=== PATIENT | female | born 1945 | race Caucasian/White ===

== ENCOUNTER → 2016-10-16 | Day surgery (SDC) | payer BC ==
[~2016-10-16] VITALS: Ht 160 cm; Wt 51.5 kg
[~2016-10-16] MED LIST: ACETAMINOPHEN 1000 MG/100 ML VIAL IV ONE; ACIP20TA6 PO; BUPIVACAINE HCL PF 0.5% 30 ML VIAL ONE; CLINDAMYCIN PHOS 900 MG/6 ML VIAL ONE; DEXT 5%-NACL 0.45% 1000 ML INJ 1,000 ML IV SCH; GABA300C5 PO; LACTATED RINGER'S 1000 ML INJ 1,000 ML ONE; LIDOCAINE HCL 1% 20 ML VIAL ONE; LISI10TA3 PO; MIDAZOLAM HCL 2 MG/2 ML VIAL ONE; MIRA50TA PO; NORC5TAB PO; ONDANSETRON HCL 4 MG/2 ML VIAL IV PUSH ONE; PHENYLEPH/NS 1000 MCG/10 ML SYR IV ONE; POVIDONE IODINE 10% OINT 1 PACKET TOP ONE; PROPOFOL 200 MG/20 ML AMP IV ONE; SODIUM CHLORIDE 0.9% FLUSH 5 ML FLUSH IVF PRN; SODIUM CHLORIDE 0.9% FLUSH 5 ML FLUSH IVF SCH; SODIUM CHLORIDE 0.9% INJ 100 ML ONE; VENL100T PO; ePHEDrine/NS 25 MG/5 ML SYR IV ONE; fentaNYL CITRATE 250 MCG/5 ML AMP ONE
[2016-10-16 10:25] LABS: HEMATOCRIT 36.3 % (35.0-46.0); MEAN CELL VOLUME 87.5 FL (80.0-100.0); MEAN CORPUSCULAR HEMOGLOBIN 29.1 PG (27.0-34.0); MEAN CORPUSCULAR HGB CONC 33.2 % (32.0-36.0); PLATELET COUNT 306 TH/MM3 (150-450); RED BLOOD COUNT 4.15 MIL/MM3 (4.00-5.30); RED CELL DISTRIBUTION WIDTH 13.2 % (11.6-17.2); REVIEW FLAG FINAL; WHITE BLOOD COUNT 7.4 TH/MM3 (4.0-11.0)
--- NOTE | 2016-10-16 11:49 | HP.UPD ---
H&P Update Date: Oct 16, 2016 Note The Pre-Admit History and Physical Examination regarding the above named patient was reviewed (including, but not limited to, vital signs, medications, allergies, co-morbid conditions), and upon re-examination it is noted that: Indicated with "X" x - the patient's condition has not significantly changed since the last examination. [] - the patient's condition has changed since the last examination. Changes: Nicki Cancino MD Oct 16, 2016 11:48
[2016-10-16 14:41] VITALS: PULSE 93
--- NOTE | 2016-10-16 14:56 | HHI.PR ---
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 Procedure: Repair of radial digital nerve of left index finger with allograft tube. Anesthesia: General Drains: None Tourniquet time (min at mmHg) 37 minutes at 220mm Hg. Patient to: PACU Patient Condition: Good Implant/Devices: SEE IMPLANT LOG (if applicable) Date/Time of Procedure: SEE SURGICAL CARE RECORD Nicki Cancino MD Oct 16, 2016 14:56
[2016-10-16 15:15] VITALS: TEMP 97.8
[2016-10-16 16:00] VITALS: BP 105/57; PULSE 86; RESP 14; O2SAT 98
--- NOTE | 2016-10-17 13:40 | EKG ---
Date Performed: 10/16/2016 Time Performed: 12:53:08 PTAGE: 71 years EKG: Sinus rhythm NONSPECIFIC T-WAVE ABNORMALITY BORDERLINE ECG Compared to prior tracing no significant change PREVIOUS TRACING : 03/18/2007 11.03 DOCTOR: [place] Anaya Interpretating Date/Time 10/17/2016 13:39:26
--- NOTE | 2016-10-19 23:39 | MP ---
cc: LAURA RIVAS M.D. 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 PROCEDURE 1. Repair of radiodigital nerve of left index finger with Allograft tube. 2. Use of operating room microscope. ANESTHESIA General. SURGEON Laura Rivas MD INDICATION A 71-year-old female who lacerated her left hand injuring the nerve. FINDINGS The nerve had healed as a [id number]. At the completion of the procedure, the neuroma was completely excised and the nerve repaired by placing into a nerve guide by Integra. TOURNIQUET TIME 37 minutes. PROCEDURE The patient was seen preoperatively where the site and side were identified and marked. The neuroma itself was identified by the patient and marked. The patient was then taken to the operating room and placed in a supine position. Her identity was checked against the arm band and the consent form, site and side confirmed. Timeout called prior to beginning the procedure. The left upper extremity was prepped with Hibiclens and draped in the usual sterile fashion. The area to be incised was outlined with a marking pen as a zigzag incision over the area of the marked neuroma. The arm was then exsanguinated and the tourniquet inflated to 220 mmHg. A #15 blade was used to make the incision down through skin down to the subcutaneous tissue. Flaps were elevated and raised and the nerve with the [id number] was immediately identified. The operating room microscope was swung into place and the distal end was placed into a tube by first placing an Ethilon stitch into the Integra 2 mm tube and then doing a horizontal mattress suture on the distal end of the nerve and then placing the second half of the stitch back into the tube. The nerve was then cut in an area which appeared to be not involved with neuromatous tissue and indeed the fascicles were identified without any scar tissue. The stitch was then tightened bringing the nerve into the tube. The proximal end was then also incised in a similar manner leaving good healthy fascicles. The neuroma was sent off for pathologic examination and identification. The tube was measured and cut short to the appropriate length to give a 1-2 mm gap in the proximal and distal ends. Horizontal mattress suture was then placed from the tube through the nerve epineurium and then back to the tube and tied this; this allowed the nerve to go into the tube. The tube was filled with saline prior to this maneuver. Once the second stitch had been tied and the nerve was in place, both ends were checked and additional saline was injected with a 22 gauge Angiocath. Bupivacaine 0.5% plain was used to make the median nerve block as well as the local block at the beginning of the case. The wound was irrigated and closed with interrupted running 5-0 nylon suture. Once the wound was closed, the tourniquet was released after 37 minutes of tourniquet time. Pressure was applied. After several minutes, there was no evidence of any oozing and a dressing was applied using povidone-iodine ointment, Adaptic Telfa, 4x4s, hand wrap and a dorsal splint to keep the hand in position of function. The patient was then taken from the operating room to the recovery room in satisfactory condition having tolerated the procedure well. Postoperative instructions include keeping the arm elevated, keeping it clean and dry and returning in several days for followup. The patient is advised to take Motrin for pain 6-800 mg. In addition she will be given a prescription for [place] 5/325 one or two every 6 hours as needed for pain, 30 will be prescribed. MD MAHI Vitale/DAVIE /3:02 PM /10:57 PM
== END | disposition home or self-care (01) ==
LOC: CSDC 10:00
PROVIDERS: ATTEND Specialist
DX: S64.491A Injury of digital nerve of left index finger, initial encounter (principal); I10 Essential (primary) hypertension; R94.31 Abnormal electrocardiogram [ECG] [EKG]; W26.0XXA Contact with knife, initial encounter
CPT/HCPCS: 01810; 64910; 85027; 88304; 93005; C9352; J0131; J2250; J2370; J2405; J3010; J7120